=== PATIENT | male | born 1995 | race Caucasian/White ===

== ENCOUNTER 2017-01-17 23:24 | Emergency (ER) | payer SELFPAY ==
[~2017-01-17 23:24] MED LIST: ABILIFY5 MG PO; AUGMENTIN 875-1 EAC2 PO; NO HOME MEDICATION XX; NORCO 5-325 TA1 EACH PO; PRILOSEC OTC20 M1 PO; PROMETHAZINE HC25 M3 PO
== END 2017-01-18 00:23 ==
LOC: EDMED 23:24
DX: J02.9 Acute pharyngitis, unspecified (principal); F31.9 Bipolar disorder, unspecified